=== PATIENT | female | born 1945 | race Caucasian/White ===

== ENCOUNTER 2020-06-17 09:32 | Emergency (ER) | payer MEDICARE, BC ==
[~2020-06-17] VITALS: Ht 157.5 cm; Wt 79.4 kg
--- NOTE | 2020-06-17 09:50 | NUR ---
Patient came in to the er c/o chest pressure x 1 week. On room air, breathing evenly and unlabored. Connected to the monitor and pulse ox. kept comfortable, will continue to monitor accordingly.
[2020-06-17 10:11] LABS: BASOPHILS % (AUTO) 0.7 % (0.0-2.0); EOSINOPHILS % (AUTO) 1.8 % (0.0-6.0); HEMATOCRIT 42 % (33-45); HEMOGLOBIN 13.9 g/dL (11.5-14.8); LYMPHOCYTES # (AUTO) 1.4 /CMM (0.8-4.8); LYMPHOCYTES % (AUTO) 23.8 % (20.0-44.0); MEAN CORPUSCULAR HGB CONC 33 g/dl (31.0-36.0); MEAN CORPUSCULAR VOLUME 87 fL (82-100); MONOCYTES # (AUTO) 0.7 /CMM (0.1-1.30); MONOCYTES % (AUTO) 11.6 % (2.0-12.0); NEUTROPHILS # (AUTO) 3.6 /CMM (1.8-8.9); NEUTROPHILS % (AUTO) 62.1 % (43.0-81.0); PLATELET COUNT (AUTO) 243 /CMM (150-450); RED BLOOD CELL COUNT(AUTO) 4.81 MIL/uL (4.0-5.2); WHITE BLOOD COUNT (AUTO) 5.7 K/uL (4.3-11.0)
[2020-06-17 10:22] LABS: CALCIUM, SERUM 9.4 mg/dL (8.5-10.1); CARBON DIOXIDE 26 mmol/L (21-32); CHLORIDE 107 mmol/L (98-107); CREATININE 1.2 mg/dL (0.6-1.3); GLUCOSE 89 mg/dL (74-106); POTASSIUM 4.3 mmol/L (3.5-5.1); SODIUM SERUM 141 mmol/L (136-145); UREA NITROGEN, BLOOD 19 mg/dL (7-18)
--- NOTE | 2020-06-17 10:25 | NUR ---
covid 19 swab collected and sent to lab.
[2020-06-17 11:44] VITALS: BP 142/88
--- NOTE | 2020-06-17 11:44 | NUR ---
Patient discharged to home in stable condition. Written and verbal after care instructions given. Patient verbalizes understanding of instruction.IV removed. Catheter intact and site benign. Pressure and 4x4 applied to site. No bleeding noted.
== END 2020-06-17 11:45 | disposition home or self-care (01) ==
LOC: ER 09:39
DX: R07.9 Chest pain, unspecified (principal); I10 Essential (primary) hypertension; Z86.73 Personal history of transient ischemic attack (TIA), and cerebral infarction without residual deficits; Z88.2 Allergy status to sulfonamides; Z20.828 Contact with and (suspected) exposure to other viral communicable diseases
CPT/HCPCS: 36415; 71045-TC; 80048-TC; 84484-TC; 85025-TC; C9803-CS; U0003-CS

== ENCOUNTER 2021-10-24 16:24 | Emergency (ER) | payer MEDICARE, BC ==
[~2021-10-24] VITALS: Ht 157.5 cm; Wt 74.8 kg
--- NOTE | 2021-10-24 16:24 | NUR ---
BIB daughter c/o tingling sensation on left orbital area since yesterday. Breathing is even and unalbored.
--- NOTE | 2021-10-24 16:48 | NUR ---
Contact INFO: Taylor (Daughter) - [phone]
--- NOTE | 2021-10-24 18:25 | NUR ---
Patient discharged to home in stable condition. Written and verbal after care instructions given. Patient verbalizes understanding of instruction.
[2021-10-24 18:26] VITALS: BP 128/81
== END 2021-10-24 18:27 | disposition home or self-care (01) ==
LOC: ER 16:27
DX: R20.2 Paresthesia of skin (principal); I12.9 Hypertensive chronic kidney disease with stage 1 through stage 4 chronic kidney disease, or unspecified chronic kidney disease; N18.9 Chronic kidney disease, unspecified; K21.9 Gastro-esophageal reflux disease without esophagitis; E78.00 Pure hypercholesterolemia, unspecified; Z90.89 Acquired absence of other organs; Z90.49 Acquired absence of other specified parts of digestive tract; Z86.73 Personal history of transient ischemic attack (TIA), and cerebral infarction without residual deficits; Z98.890 Other specified postprocedural states; Z88.2 Allergy status to sulfonamides
CPT/HCPCS: 70450-TC

== ENCOUNTER 2022-02-18 20:46 | Inpatient (IN) | payer MEDICARE, BC ==
[~2022-02-18] VITALS: Ht 157.5 cm; Wt 74.8 kg
--- NOTE | 2022-02-18 21:50 | NUR ---
BIBSELF WITH C/O FREQUENCY AND PAIN ON URINATION FOR THE PAST SEVERAL DAYS. PT IS AAO X 4, RESPIRATIONS UNLABORED, SATURATION AT 98% ON ROOM AIR, AMBULATORY WITH 4 POINT CANE. PT WAS SEEN AT MD'S OFFICE YESTERDAY AND WAS PRESCRIBED WITH ERTAPENEM, AND ZOSYN BUT HAS NOT YET STARTED. PT CONNECTED TO MONITOR AND PULSE OX. KEPT COMFORTABLE. WILL CONT TO MONITOR.
--- NOTE | 2022-02-18 22:01 | NUR ---
FAMILY CASEWORKER FOR DR. SIGALA PAGED.
[2022-02-18] MEDS ORDERED: PIPERACILLIN /TAZOBACTAM 3.375 G VIAL IV ONE (22:17)
--- NOTE | 2022-02-18 22:20 | NUR ---
IV LINE ESTABLISHED AT R HAND 22G, BLOOD DRAWN, AND URINE COLLECTED, SENT TO LAB.
--- NOTE | 2022-02-18 22:23 | NUR ---
TELEPHONE CALL TO PT'S DAUGHTER, DERRICK AT [phone], TO GIVE UPDATE ON PT PER PT REQUEST. NO ANSWER AFTER SEVERAL ATTEMPTS, LEFT VOICE MAIL AND PROVIDED CALL BACK NUMBER.
[2022-02-18] MEDS ORDERED: PIPERACILLIN /TAZOBACTAM 3.375 G in IV D5W 50 ML IV ONE (22:30)
[2022-02-18 22:40] LABS: BASOPHILS % (AUTO) 0.4 % (0.0-2.0); EOSINOPHILS % (AUTO) 1.3 % (0.0-6.0); HEMATOCRIT 37 % (33-45); HEMOGLOBIN 12.3 g/dL (11.5-14.8); LYMPHOCYTES # (AUTO) 0.6 K/uL (0.8-4.8); MEAN CORPUSCULAR HGB CONC 34 g/dl (31.0-36.0); MEAN CORPUSCULAR VOLUME 84 fL (82-100); MONOCYTES # (AUTO) 0.5 K/uL (0.1-1.30); MONOCYTES % (AUTO) 9.2 % (2.0-12.0); NEUTROPHILS # (AUTO) 4.7 K/uL (1.8-8.9); NEUTROPHILS % (AUTO) 79.1 % (43.0-81.0); PLATELET COUNT (AUTO) 237 K/uL (150-450); RED BLOOD CELL COUNT(AUTO) 4.37 MIL/uL (4.0-5.2); WHITE BLOOD COUNT (AUTO) 5.9 K/uL (4.3-11.0)
[2022-02-18 22:52] LABS: CALCIUM, SERUM 8.8 mg/dL (8.5-10.1); CARBON DIOXIDE 24 mmol/L (21-32); CHLORIDE 106 mmol/L (98-107); CREATININE 1.4 mg/dL (0.6-1.3); GLUCOSE 107 mg/dL (74-106); POTASSIUM 4.6 mmol/L (3.5-5.1); SODIUM SERUM 137 mmol/L (136-145); UREA NITROGEN, BLOOD 18 mg/dL (7-18)
--- NOTE | 2022-02-18 23:03 | NUR ---
COVID ANTIGEN AND MRSA SWAB COLLECTED, SENT TO LAB
[2022-02-18 23:14] LABS: BILIRUBIN,URINE SMALL (NEGATIVE); COLOR,URINE YELLOW (YELLOW); LEUKOCYTE ESTERASE ,URINE NEGATIVE (NEGATIVE); NITRITE, URINE NEGATIVE (NEGATIVE); PH,URINE 5.5 (5.0-8.0); PROTEIN,URINE NEGATIVE (NEGATIVE); UGLUCOSE NEGATIVE (NEGATIVE); UROBILINOGEN,URINE 0.2 EU/dL (0.2)
[2022-02-18] MEDS ORDERED: ONDANSETRON HCL/PF 4 MG/2 ML VIAL ONE (23:25)
[2022-02-18] MEDS ORDERED: ONDANSETRON HCL/PF 4 MG/2 ML VIAL IV ONE (23:30)
[2022-02-19] MEDS ORDERED: MORPHINE SULFATE INJ 2 MG/ML DISP.SYRIN IV PRN
[2022-02-19] MEDS ORDERED: HYDROCODONE/APAP 5/325MG TABLET PO PRN
[2022-02-19] MEDS ORDERED: LISI10TA29 PO (00:50)
[2022-02-19] MEDS ORDERED: CLOP75TA15 PO (00:50)
[2022-02-19] MEDS ORDERED: CYAN100096 PO (00:50)
[2022-02-19] MEDS ORDERED: CHOL400T11 PO (00:50)
[2022-02-19] MEDS ORDERED: FAMO20TA8 PO ×2 (00:50→08:26)
[2022-02-19] MEDS ORDERED: LEVO88TA5 PO (00:50)
[2022-02-19] MEDS ORDERED: LAMO100T17 PO (00:50)
[2022-02-19] MEDS ORDERED: LEVE500T20 PO (00:50)
[2022-02-19] MEDS ORDERED: ROSU10TA2 PO (00:50)
--- NOTE | 2022-02-19 01:37 | NUR ---
REPORT GIVEN TO CHARGE NURSE
--- NOTE | 2022-02-19 01:57 | NUR ---
Patient transferred to [facility] via BLS protocol.
[2022-02-19 02:00] VITALS: BP 103/57
[2022-02-19] MEDS: ENOXAPARIN SODIUM 30 MG/0.3 ML DISP.SYRIN SQ SCH ×2 (02:25→21:15)
[2022-02-19] MEDS: IV NS 0.9% 1,000 ML IV PRN (02:26)
--- NOTE | 2022-02-19 03:16 | NUR ---
ADMISSION NOTES PT ARRIVED VIA GURNEY @ 0200 ACCOMPANIED BY EMT. PT ABLE TO AMBULATE TO BED WITH CANE, STEADY GAIT. AOx4, ABLE TO MAKE NEEDS KNOWN. ON RA AND TOLERATING WELL. NO SOB NOTED. NO S/SX OF RESPIRATORY DISTRESS NOTED. IV ACCESS IN R HAND #22G RUNNING NS @ 75 ML/HR. SAFETY PRECAUTIONS IN PLACE: BED IN LOWEST, LOCKED POSITION, SIDERAILS UPx2, AND BRAKES ON. TABLE AND CALL LIGHT WITHIN REACH. WILL CONTINUE TO MONITOR.
[2022-02-19] MEDS ORDERED: PIPERACILLIN /TAZOBACTAM 3.375 G VIAL IV ONE (04:35)
[2022-02-19] MEDS ORDERED: ZOSYN IVPB 3.375 G in IV D5W 50ml IV SCH (05:00)
--- NOTE | 2022-02-19 05:21 | NUR ---
SPOKE TO DAUGHTER, DERRICK THOMAS, ABOUT PATIENT GETTING ADMITTED. NUMBER IS . ALSO REQUESTED IF DAUGHTER COULD BRING IN PATIENT'S ADVANCE DIRECTIVE
[2022-02-19 06:34] LABS: BASOPHILS % (AUTO) 0.8 % (0.0-2.0); EOSINOPHILS % (AUTO) 2.2 % (0.0-6.0); HEMATOCRIT 33 % (33-45); HEMOGLOBIN 10.9 g/dL (11.5-14.8); LYMPHOCYTES # (AUTO) 0.7 K/uL (0.8-4.8); LYMPHOCYTES % (AUTO) 18.1 % (20.0-44.0); MEAN CORPUSCULAR HGB CONC 33 g/dl (31.0-36.0); MEAN CORPUSCULAR VOLUME 85 fL (82-100); MONOCYTES # (AUTO) 0.4 K/uL (0.1-1.30); MONOCYTES % (AUTO) 10.6 % (2.0-12.0); NEUTROPHILS # (AUTO) 2.6 K/uL (1.8-8.9); NEUTROPHILS % (AUTO) 68.3 % (43.0-81.0); PLATELET COUNT (AUTO) 223 K/uL (150-450); RED BLOOD CELL COUNT(AUTO) 3.87 MIL/uL (4.0-5.2); WHITE BLOOD COUNT (AUTO) 3.8 K/uL (4.3-11.0)
[2022-02-19] MEDS: ACETAMINOPHEN 325 MG TABLET PO PRN ×2 (06:35→17:28)
[2022-02-19 06:44] LABS: CALCIUM, SERUM 8.6 mg/dL (8.5-10.1); CARBON DIOXIDE 26 mmol/L (21-32); CHLORIDE 106 mmol/L (98-107); CREATININE 1.4 mg/dL (0.6-1.3); GLUCOSE 93 mg/dL (74-106); MAGNESIUM 2.1 mg/dL (1.8-2.4); PHOSPHORUS 3.6 mg/dL (2.5-4.9); POTASSIUM 4.1 mmol/L (3.5-5.1); SODIUM SERUM 139 mmol/L (136-145); UREA NITROGEN, BLOOD 16 mg/dL (7-18)
--- NOTE | 2022-02-19 06:46 | NUR ---
RN CLOSING NOTES PT IN BED, AWAKE, WATCHING TV. AOx4, ABLE TO MAKE NEEDS KNOWN. ON RA AND TOLERATING WELL. NO SOB NOTED. NO S/SX OF RESPIRATORY DISTRESS NOTED. IV ACCESS IN R HAND #22G RUNNING NS @ 75 ML/HR. ALL ORDERS CARRIED OUT. ALL NEEDS MET. PT KEPT CLEAN AND DRY. SAFETY PRECAUTIONS IN PLACE: BED IN LOWEST, LOCKED POSITION, SIDERAILS UPx2, AND BRAKES ON. TABLE AND CALL LIGHT WITHIN REACH. WILL ENDORSE TO ONCOMING SHIFT FOR RANJANA.
[2022-02-19 06:48] LABS: CHOLESTEROL 106 mg/dL (<200); HDL CHOLESTEROL 42 mg/dL (40-60); LDL 40 mg/dL (0-99); TRIGLYCERIDES 122 mg/dL (30-150)
--- NOTE | 2022-02-19 07:30 | NUR ---
RN OPENING NOTES RECEIVED PATIENT IN BED, AWAKE A/O X4, VERBALLY RESPONSIVE, NO SIGNS OF ACUTE DISTRESS NOTED. STABLE ON ROOM AIR, NO SOB NOTED, BREATHING EVEN AND UNLABORED. NO C/O PAIN AT THIS TIME. NOTED WITH IV ACCESS ON RIGHT HAND #22G, INTACT AND PATENT WITH NS AT 75 ML/HR RUNNING. SAFETY MEASURE IN PLACE. BED IN LOWEST AND LOCKED POSITION, SIDE RAILS UP X2, CALL LIGHT PLACED WITHIN EASY REACH. WILL CONTINUE TO MONITOR PATIENT.
--- NOTE | 2022-02-19 09:35 | NUR ---
RN NOTES BEDSIDE ENDORSEMENT RECEIVED FROM EDI FARIA. PATIENT TRANSFERRED TO ROOM 117-1 [facility]IA [facility] [place]
--- NOTE | 2022-02-19 10:19 | NUR ---
RN NOTES DAUGHTER, DERRICK, AT BEDSIDE TO SEE PATIENT. PATIENT ABLE TO AMBULATE TO THE BATHROOM W/ STEADY GAIT.
--- NOTE | 2022-02-19 11:06 | NUR ---
RN NOTES PCR COVID TEST OBTAINED FROM LAB.
--- NOTE | 2022-02-19 11:43 | NUR ---
RN NOTES PATIENT SEEN BY DR. SHAVER AT BEDSIDE; MADE AWARE OF PLAN OF CARE. WILL DO MED RECON PER MD.
[2022-02-19] MEDS: LEVETIRACETAM (250 MG) 250 MG TABLET PO SCH ×2 (11:59→21:14)
[2022-02-19] MEDS: PIPERACILLIN /TAZOBACTAM 3.375 G in IV D5W 100 ML IV SCH ×2 (12:35→21:13)
[2022-02-19] MEDS: ONDANSETRON HCL/PF 4 MG/2 ML VIAL IVP PRN (17:28)
--- NOTE | 2022-02-19 18:18 | NUR ---
RN NOTES AMBULATES W/ STEADY GAIT; CONTINUES ON IVF AND IV ATB, NO ADVERSE REACTION. ABLE TO EAT MEALS DURING THE DAY. PROVIDED W/ PRN MEDS PER PATIENT REQUEST. SAFETY MEASURES MAINTAINED.
--- NOTE | 2022-02-19 19:20 | NUR ---
RN NOTE PT RECEIVED IN BED. PT IS ON ROOM AIR SHOWING NO S/SX OF RESP DISTRESS/SOB. BREATHING EVEN AND UNLABORED. PT IS A/OX4. AMBULATORY. ON CARDIAC DIET. IV ACCESS NOTED ON RIGHT HAND #22, LINE FLUSHED, PATENT, AND INTACT RUNNING NS AT 75 CC/HR. ALL SAFETY MEASURES IMPLEMENTED. CALL LIGHT WITHIN REACH. HOB ELEVATED. BED LOCKED AND IN LOWEST POSITION. WILL CONTINUE TO MONITOR AND ASSESS FOR ANY CHANGES DURING SHIFT.
[2022-02-19 20:00] VITALS: BP 104/53
[2022-02-19] MEDS: LamoTRIgine 100 MG TABLET PO SCH (21:14)
[2022-02-19] MEDS: FAMOTIDINE (20 MG) 20 MG TABLET PO SCH (21:14)
[2022-02-19] MEDS: ATORVASTATIN 10 MG TABLET PO SCH (21:14)
[2022-02-20 04:00] VITALS: BP 130/59
[2022-02-20] MEDS: IV NS 0.9% 1,000 ML IV PRN (05:27)
[2022-02-20] MEDS: PIPERACILLIN /TAZOBACTAM 3.375 G in IV D5W 100 ML IV SCH ×3 (05:28→21:04)
--- NOTE | 2022-02-20 06:24 | NUR ---
RN NOTE NO CHANGES IN PT CONDITION DURING SHIFT. PT IS ON ROOM AIR SHOWING NO S/SX OF RESP DISTRESS/SOB. BREATHING EVEN AND UNLABORED. NS RUNNING AT 75 CC/HR AND ZOSYN RUNNING AT 25 CC/HR. ALL SAFETY MEASURES IMPLEMENTED. CALL LIGHT WITHIN REACH. HOB ELEVATED. BED LOCKED AND IN LOWEST POSITION. WILL ENDORSE TO MORNING SHIFT RN FOR RANJANA.
--- NOTE | 2022-02-20 07:32 | NUR ---
MS RN NOTE RECEIVED PATIENT IN BED ASLEEP. AWAKE UPON CALLING HER NAME. PATIENT IS ON ROOM AIR NO RESP DISTRESS/SOB NOTED. BREATHING EVEN AND UNLABORED. PT IS A/OX4. AMBULATORY. IV ACCESS ON RIGHT HAND #22, INTACT AND PATENT RUNNING NS AT 75 CC/HR. PER PREVIOUS SHIFT NURSE PATIENT CODE STATUS NEEDS TO BE VERIFIED. PATIENT STATED DNI PER PREVIOUS SHIFT NURSE ENDORSEMENT. ALL SAFETY MEASURES IN PLACE. CALL LIGHT WITHIN REACH. HOB ELEVATED. BED LOCKED AND IN LOWEST POSITION. WILL CONTINUE TO MONITOR DURING SHIFT.
[2022-02-20] MEDS: LEVOTHYROXINE SODIUM 88 MCG TABLET PO SCH (07:42)
[2022-02-20] MEDS: LEVETIRACETAM (250 MG) 250 MG TABLET PO SCH ×2 (08:19→20:28)
[2022-02-20] MEDS: CHOLECALCIFEROL (VITAMIN D 3) 400 UNIT TABLET PO SCH (08:19)
[2022-02-20] MEDS: CYANOCOBALAMIN 500 MCG TABLET PO SCH (08:19)
[2022-02-20] MEDS: CLOPIDOGREL BISULFATE 75 MG TABLET PO SCH (08:20)
[2022-02-20] MEDS: LISINOPRIL (10MG) 10 MG TABLET PO SCH (08:20)
[2022-02-20 10:10] LABS: CALCIUM, SERUM 8.5 mg/dL (8.5-10.1); CARBON DIOXIDE 24 mmol/L (21-32); CHLORIDE 108 mmol/L (98-107); CREATININE 1.3 mg/dL (0.6-1.3); GLUCOSE 111 mg/dL (74-106); POTASSIUM 4.2 mmol/L (3.5-5.1); SODIUM SERUM 139 mmol/L (136-145); UREA NITROGEN, BLOOD 12 mg/dL (7-18)
[2022-02-20 10:15] LABS: ALANINE AMINOTRANSFERASE 25 U/L (12-78); ALKALINE PHOSPHATASE 85 U/L (46-116); ASPARTATE AMINOTRANSFERASE 29 U/L (15-37); BILIRUBIN,TOTAL 0.2 mg/dL (0.2-1.0); TOTAL PROTEIN, SERUM 6.2 g/dL (6.4-8.2)
[2022-02-20] MEDS: ACETAMINOPHEN 325 MG TABLET PO PRN ×2 (10:44→20:28)
[2022-02-20] MEDS: ONDANSETRON HCL/PF 4 MG/2 ML VIAL IVP PRN (10:44)
[2022-02-20 12:21] VITALS: BP 110/51
--- NOTE | 2022-02-20 18:28 | NUR ---
MS RN CLOSING NOTE PATIENT IN BED AWAKE. PATIENT IS ON ROOM AIR NO RESP DISTRESS/SOB NOTED. BREATHING EVEN AND UNLABORED. PT IS A/OX4. AMBULATORY. IV ACCESS ON RIGHT HAND #22, INTACT AND PATENT RUNNING NS AT 75 CC/HR. ALL DUE MEDS GIVEN ORDERED. DAUGHTER VISITED THE PATIENT.ALL SAFETY MEASURES IN PLACE. CALL LIGHT WITHIN REACH. HOB ELEVATED. BED LOCKED AND IN LOWEST POSITION. WILL ENDORSE FOR RANJANA.
--- NOTE | 2022-02-20 19:49 | NUR ---
MS RN OPENING NOTE RECEIVED PT AWAKE IN BED. A/O X4 AND ABLE TO MAKE NEEDS KNOWN. PT STABLE ON ROOM AIR. NO SOB OR S/S OF RESPIRATORY DISTRESS. BREATHING EVEN AND UNLABORED. IV ACCESS ON RIGHT HAND 22 GAUGE AND LEFT HAND 22 GAUGE, INTACT AND PATENT RUNNING NS AT 75 CC/HR. SAFETY PRECAUTIONS IN PLACE. BED IN LOWEST LOCKED POSITION, HOB ELEVATED, SIDE RAILS UP X2, AND CALL LIGHT AND TABLE WITHIN REACH. ALL NEEDS MET AT THIS TIME.
[2022-02-20 20:00] VITALS: BP 134/54
[2022-02-20] MEDS: LamoTRIgine 100 MG TABLET PO SCH (21:04)
[2022-02-20] MEDS: ATORVASTATIN 10 MG TABLET PO SCH (21:07)
[2022-02-20] MEDS: ENOXAPARIN SODIUM 30 MG/0.3 ML DISP.SYRIN SQ SCH (21:07)
[2022-02-20] MEDS: FAMOTIDINE (20 MG) 20 MG TABLET PO SCH (21:08)
[2022-02-21] MEDS: ACETAMINOPHEN 325 MG TABLET PO PRN ×2 (03:05→22:15)
[2022-02-21 04:00] VITALS: BP 118/40
[2022-02-21] MEDS: PIPERACILLIN /TAZOBACTAM 3.375 G in IV D5W 100 ML IV SCH ×3 (04:25→21:33)
[2022-02-21] MEDS: IV NS 0.9% 1,000 ML IV PRN ×2 (04:29→22:11)
--- NOTE | 2022-02-21 06:36 | NUR ---
MS RN CLOSING NOTE PT AWAKE IN BED. A/O X4 AND ABLE TO MAKE NEEDS KNOWN. PT STABLE ON ROOM AIR. NO SOB OR S/S OF RESPIRATORY DISTRESS. BREATHING EVEN AND UNLABORED. IV ACCESS ON RIGHT HAND 22 GAUGE AND LEFT HAND 22 GAUGE, INTACT AND PATENT RUNNING NS AT 75 CC/HR. ALL DUE MEDS GIVEN ORDERED. SAFETY PRECAUTIONS IN PLACE. BED IN LOWEST LOCKED POSITION, HOB ELEVATED, SIDE RAILS UP X2, AND CALL LIGHT AND TABLE WITHIN REACH. ALL NEEDS MET AT THIS TIME AND WILL ENDORSE TO ONCOMING NURSE FOR RANJANA.
[2022-02-21 07:08] LABS: ALANINE AMINOTRANSFERASE 191 U/L (12-78); ALBUMIN 2.6 g/dL (3.4-5.0); ALKALINE PHOSPHATASE 202 U/L (46-116); ASPARTATE AMINOTRANSFERASE 232 U/L (15-37); BILIRUBIN,TOTAL 0.7 mg/dL (0.2-1.0); CALCIUM, SERUM 7.9 mg/dL (8.5-10.1); CARBON DIOXIDE 24 mmol/L (21-32); CHLORIDE 109 mmol/L (98-107); CREATININE 1.3 mg/dL (0.6-1.3); GLUCOSE 126 mg/dL (74-106); PHOSPHORUS 3.1 mg/dL (2.5-4.9); SODIUM SERUM 142 mmol/L (136-145); TOTAL PROTEIN, SERUM 5.5 g/dL (6.4-8.2); UREA NITROGEN, BLOOD 10 mg/dL (7-18)
--- NOTE | 2022-02-21 07:10 | NUR ---
RN NOTE RECEIVED PATIENT SITTING ON BED ALERT ORIENTED X4 ON ROOM AIR O2:96% IV SITE IS ON LEFT HAND INTACT PATENT ON IV HYDRATION NS 75CC/HR,CONTINET TO BOWEL/BLADDER AMBULATORY,SAFETY MEASURE IMPLEMENT,BED IN LOW POSITION AND LOCKED,CALL LIGHT WITHIN REACH CONTINUE TO MONITOR.
[2022-02-21 07:46] LABS: BASOPHILS % (AUTO) 0.2 % (0.0-2.0); EOSINOPHILS % (AUTO) 5.7 % (0.0-6.0); HEMATOCRIT 32 % (33-45); HEMOGLOBIN 10.7 g/dL (11.5-14.8); LYMPHOCYTES # (AUTO) 0.4 K/uL (0.8-4.8); LYMPHOCYTES % (AUTO) 16.5 % (20.0-44.0); MEAN CORPUSCULAR HGB CONC 34 g/dl (31.0-36.0); MEAN CORPUSCULAR VOLUME 85 fL (82-100); MONOCYTES # (AUTO) 0.3 K/uL (0.1-1.30); MONOCYTES % (AUTO) 12.5 % (2.0-12.0); NEUTROPHILS # (AUTO) 1.6 K/uL (1.8-8.9); NEUTROPHILS % (AUTO) 65.1 % (43.0-81.0); PLATELET COUNT (AUTO) 164 K/uL (150-450); RED BLOOD CELL COUNT(AUTO) 3.77 MIL/uL (4.0-5.2); WHITE BLOOD COUNT (AUTO) 2.4 K/uL (4.3-11.0)
[2022-02-21] MEDS: LEVOTHYROXINE SODIUM 88 MCG TABLET PO SCH (07:50)
[2022-02-21] MEDS: CHOLECALCIFEROL (VITAMIN D 3) 400 UNIT TABLET PO SCH (08:53)
[2022-02-21] MEDS: LEVETIRACETAM (250 MG) 250 MG TABLET PO SCH ×2 (08:54→21:34)
[2022-02-21] MEDS: CLOPIDOGREL BISULFATE 75 MG TABLET PO SCH (08:54)
[2022-02-21] MEDS: CYANOCOBALAMIN 500 MCG TABLET PO SCH (08:54)
[2022-02-21] MEDS: LISINOPRIL (10MG) 10 MG TABLET PO SCH (09:00)
[2022-02-21] MEDS ORDERED: Z GUARD REMEDY 4 OZ OINT TP PRN (10:30)
[2022-02-21 12:00] VITALS: BP 140/68
[2022-02-21] MEDS: NYSTATIN CREAM 15 GM TUBE TP SCH (17:02)
--- NOTE | 2022-02-21 18:36 | NUR ---
RN NOTE PATIENT REMAINS ALERT ORIENTED X4 VERBALLY RESPONSIVE NO SOB NOT ACUTE DISTRESS NOTED IV LINE IS ON LEFT HAND INTACT PATENT ON NS IV HYDRATION 75CC/HR,ENDORSE NEXT COMING SHIFT FOR CONTINUATION OF CARE.
--- NOTE | 2022-02-21 19:35 | NUR ---
RN OPENING NOTES: RECEIVED PT IN BED, AWAKE, A/O X4 AND VERBALLY RESPONSIVE. ABLE TO MAKE NEEDS KNOWN. ON ROOM AIR AND PT TOLERATED WELL. BREATHING EVEN AND UNLABORED. IV ACCESS ON LEFT HAND #22G INTACT AND PATENT RUNNING NS AT 75 CC/HR. NO C/O PAIN OR DISCOMFORT. NO ACUTE DISTRESS. ALL SAFETY MEASURES IN PLACE. BED IN LOWEST POSITION AND LOCKED. SIDE RAILS UP X2, PLACE CALL LIGHT WITH IN REACH. WILL CONTINUE TO MONITOR.
[2022-02-21 20:00] VITALS: BP 117/54
[2022-02-21] MEDS: ATORVASTATIN 10 MG TABLET PO SCH (21:34)
[2022-02-21] MEDS: LamoTRIgine 100 MG TABLET PO SCH (21:34)
[2022-02-21] MEDS: FAMOTIDINE (20 MG) 20 MG TABLET PO SCH (21:34)
[2022-02-21] MEDS: ENOXAPARIN SODIUM 30 MG/0.3 ML DISP.SYRIN SQ SCH (21:35)
--- NOTE | 2022-02-21 22:20 | NUR ---
RN NOTES: PT C/O GENERALIZED BODY ACHE, 3/10 PAIN SCALE. TYLENOL 325 MG 2 TABS GIVEN PER PRN ORDERED. PT TOLERATED WELL. WILL CONTINUE TO MONITOR
[2022-02-22 04:00] VITALS: BP 110/59
[2022-02-22] MEDS ORDERED: diphenhydrAMINE HCL 50 MG/ML VIAL IV ONE (04:30)
--- NOTE | 2022-02-22 04:46 | NUR ---
RN NOTES: PT C/O GENERALIZED ITCHINESS ALL OVER HER BODY WITH REDNESS. SHE WANTS SOMETHING TO STOP HER ITCHINESS. NOTIFIED SARAH ANDRE. ORDER BENADRYL 25 MG IV PUSH ONCE. ORDER NOTED AND CARRIED OUT.
[2022-02-22] MEDS: PIPERACILLIN /TAZOBACTAM 3.375 G in IV D5W 100 ML IV SCH (04:57)
--- NOTE | 2022-02-22 06:40 | NUR ---
RN CLOSING NOTES: PT IN BED, AWAKE, A/O X4 AND VERBALLY RESPONSIVE. ABLE TO MAKE NEEDS KNOWN. ON ROOM AIR AND PT TOLERATED WELL. O2 SAT 100%. BREATHING EVEN AND UNLABORED. IV ACCESS ON LEFT HAND #22G INTACT AND PATENT. NO S/S OF INFILTRATIONS. RUNNING NS AT 75 CC/HR. NO C/O PAIN OR DISCOMFORT. NO ACUTE DISTRESS. ALL DUE MEDS GIVEN ORDERED. ALL SAFETY MEASURES IN PLACE. BED IN LOWEST POSITION AND LOCKED. SIDE RAILS UP X2, PLACE CALL LIGHT WITH IN REACH. WILL ENDORSE TO MORNING SHIFT NURSE.
[2022-02-22 06:44] LABS: BASOPHILS % (AUTO) 0.2 % (0.0-2.0); EOSINOPHILS % (AUTO) 6.8 % (0.0-6.0); HEMATOCRIT 33 % (33-45); HEMOGLOBIN 11.1 g/dL (11.5-14.8); LYMPHOCYTES # (AUTO) 0.4 K/uL (0.8-4.8); LYMPHOCYTES % (AUTO) 18.5 % (20.0-44.0); MEAN CORPUSCULAR HGB CONC 33 g/dl (31.0-36.0); MEAN CORPUSCULAR VOLUME 85 fL (82-100); MONOCYTES # (AUTO) 0.2 K/uL (0.1-1.30); MONOCYTES % (AUTO) 10.2 % (2.0-12.0); NEUTROPHILS # (AUTO) 1.5 K/uL (1.8-8.9); NEUTROPHILS % (AUTO) 64.3 % (43.0-81.0); PLATELET COUNT (AUTO) 142 K/uL (150-450); RED BLOOD CELL COUNT(AUTO) 3.88 MIL/uL (4.0-5.2); WHITE BLOOD COUNT (AUTO) 2.4 K/uL (4.3-11.0)
[2022-02-22 07:08] LABS: ALANINE AMINOTRANSFERASE 240 U/L (12-78); ALBUMIN 2.5 g/dL (3.4-5.0); ALKALINE PHOSPHATASE 278 U/L (46-116); ASPARTATE AMINOTRANSFERASE 202 U/L (15-37); BILIRUBIN,DIRECT 0.9 mg/dL (0.0-0.2); BILIRUBIN,TOTAL 1.3 mg/dL (0.2-1.0); CARBON DIOXIDE 12 mmol/L (21-32); CHLORIDE 109 mmol/L (98-107); CREATININE 1.2 mg/dL (0.6-1.3); GLUCOSE 87 mg/dL (74-106); PHOSPHORUS 3.1 mg/dL (2.5-4.9); POTASSIUM 3.8 mmol/L (3.5-5.1); SODIUM SERUM 142 mmol/L (136-145); TOTAL PROTEIN, SERUM 5.4 g/dL (6.4-8.2); UREA NITROGEN, BLOOD 8 mg/dL (7-18)
--- NOTE | 2022-02-22 07:30 | NUR ---
RN OPENING NOTE PATIENT IS IN BED ON SEMI-SMITH'S POSITION AWAKE, ALERT, ORIENTED X 4. ON ROOM AIR WITH OXYGEN SATURATION AT 100%. WITH LEFT HAND IV LINE INFUSING WITH NS AT 75 CC/HR. NOT IN ANY FORM OF DISTRESS. WITH REDNESS ON ARMS, ABDOMEN, BUTTOCKS, AND GROIN. BED IS LOCKED IN THE LOWEST POSITION, 3 GUARD RAILS RAISED, CALL AJ WITHIN REACH AND ALL HOSPITAL SAFETY PRECAUTIONS ARE IN PLACE. WILL CONTINUE TO MONITOR THROUGHOUT SHIFT.
[2022-02-22 07:55] LABS: CALCIUM, SERUM 8.4 mg/dL (8.5-10.1)
[2022-02-22] MEDS: CHOLECALCIFEROL (VITAMIN D 3) 400 UNIT TABLET PO SCH (08:23)
[2022-02-22] MEDS: CLOPIDOGREL BISULFATE 75 MG TABLET PO SCH (08:24)
[2022-02-22] MEDS: LISINOPRIL (10MG) 10 MG TABLET PO SCH (08:24)
[2022-02-22] MEDS: LEVOTHYROXINE SODIUM 88 MCG TABLET PO SCH (08:24)
[2022-02-22] MEDS: LEVETIRACETAM (250 MG) 250 MG TABLET PO SCH ×2 (08:25→20:45)
[2022-02-22] MEDS: CYANOCOBALAMIN 500 MCG TABLET PO SCH (08:25)
[2022-02-22] MEDS: NYSTATIN CREAM 15 GM TUBE TP SCH ×2 (09:34→17:44)
[2022-02-22] MEDS: LEVOFLOXACIN 500 MG /D5W 100ML 500 MG in PREMIX 1 EA IV SCH (10:35)
--- NOTE | 2022-02-22 11:49 | NUR ---
RN NOTE IV OUT. IV REINSERTED BY EDI CEE ON RIGHT HAND USING GAUGE 24.
[2022-02-22 12:00] VITALS: BP 104/42
[2022-02-22] MEDS: ACETAMINOPHEN 325 MG TABLET PO PRN ×2 (12:14→21:46)
[2022-02-22] MEDS: ONDANSETRON HCL/PF 4 MG/2 ML VIAL IVP PRN (12:14)
[2022-02-22] MEDS: METRONIDAZOLE 500MG/ NS 100ML 500 MG in PREMIX 1 EA IV SCH ×2 (13:44→20:24)
--- NOTE | 2022-02-22 15:33 | NUR ---
urine specimen obtained send to lab awaits results.
[2022-02-22 15:39] LABS: BILIRUBIN,URINE NEGATIVE (NEGATIVE); COLOR,URINE YELLOW (YELLOW); LEUKOCYTE ESTERASE ,URINE NEGATIVE (NEGATIVE); NITRITE, URINE NEGATIVE (NEGATIVE); PROTEIN,URINE NEGATIVE (NEGATIVE); UGLUCOSE NEGATIVE (NEGATIVE); UROBILINOGEN,URINE 0.2 EU/dL (0.2)
--- NOTE | 2022-02-22 15:51 | NUR ---
RN NOTE MIDLINE ON RIGHT FOREARM INSERTED BY EDI TNIOCO. IV SALINE LOCK GAUGE 24 ON RIGHT HAND REMOVED.
[2022-02-22] MEDS: IV NS 0.9% 1,000 ML IV PRN (17:48)
[2022-02-22] MEDS: diphenhydrAMINE HCL 50 MG/ML VIAL IV PRN ×2 (17:57→23:56)
--- NOTE | 2022-02-22 18:57 | NUR ---
RN CLOSING NOTE PATIENT IS IN BED ON SEMI-SMITH'S POSITION ALERT, ORIENTED X 4. ON ROOM AIR WITH OXYGEN SATURATION AT 100%. WITH RIGHT FOREARM IV LINE INFUSING WITH NS AT 75 CC/HR. NOT IN ANY FORM OF DISTRESS. ARIANA PAIN. WITH REDNESS ON ARMS, ABDOMEN, BUTTOCKS, AND GROIN. BED IS LOCKED IN THE LOWEST POSITION, 3 GUARD RAILS RAISED, CALL AJ WITHIN REACH AND ALL HOSPITAL SAFETY PRECAUTIONS ARE IN PLACE. ALL DUE MEDICATIONS GIVEN. WILL ENDORSE TO SKILLED NURSING FACILITIES PROFESSIONAL NURSE.
[2022-02-22 20:00] VITALS: BP 130/62
[2022-02-22] MEDS: ENOXAPARIN SODIUM 30 MG/0.3 ML DISP.SYRIN SQ SCH (20:25)
--- NOTE | 2022-02-22 20:30 | NUR ---
RN NOTE DUE FLAGYL IV GIVEN ORDERED. PT ASKING FOR BENADRYL FOR PROPHYLAXIS TO IV ATB. HOWEVER, IT IS NOT YET DUE AT THIS TIME. PT VERBALIZED UNDERSTANDING. WILL CONT TO MONITOR FOR ANY ALLERGIC REACTION TO IV FLAGYL.
--- NOTE | 2022-02-22 21:00 | NUR ---
RN NOTE NO NOTED ALLERGIC REACTION TO FLAGYL, NO NEW RASHES/REDNESS. WILL CONT TO MONITOR.
[2022-02-22] MEDS: ATORVASTATIN 10 MG TABLET PO SCH (21:28)
[2022-02-22] MEDS: FAMOTIDINE (20 MG) 20 MG TABLET PO SCH (21:28)
[2022-02-22] MEDS: LamoTRIgine 100 MG TABLET PO SCH (21:28)
[2022-02-23] VITALS: BP 140/60
--- NOTE | 2022-02-23 | NUR ---
RN NOTE GIVEN IV BENADRYL PER PT'S REQUEST FOR ITCHING/REDNESS
[2022-02-23 04:00] VITALS: BP 132/57
[2022-02-23] MEDS: METRONIDAZOLE 500MG/ NS 100ML 500 MG in PREMIX 1 EA IV SCH ×3 (05:30→20:41)
--- NOTE | 2022-02-23 05:52 | NUR ---
RN NOTE PT SHOWED HER R-ARM WHICH SHOWED LESS REDNESS, AND NO NEW RASHES/REDNESS APPEARED. NO S/S OF ALLERGY TO FLAGYL NOTED. NEXT DOSE OF FLAGYL GIVEN.
[2022-02-23 06:39] LABS: BASOPHILS % (AUTO) 0.3 % (0.0-2.0); EOSINOPHILS % (AUTO) 7.1 % (0.0-6.0); HEMATOCRIT 31 % (33-45); HEMOGLOBIN 10.4 g/dL (11.5-14.8); LYMPHOCYTES # (AUTO) 0.4 K/uL (0.8-4.8); LYMPHOCYTES % (AUTO) 14.3 % (20.0-44.0); MEAN CORPUSCULAR HGB CONC 33 g/dl (31.0-36.0); MEAN CORPUSCULAR VOLUME 86 fL (82-100); MONOCYTES # (AUTO) 0.4 K/uL (0.1-1.30); MONOCYTES % (AUTO) 14.3 % (2.0-12.0); NEUTROPHILS # (AUTO) 1.7 K/uL (1.8-8.9); PLATELET COUNT (AUTO) 148 K/uL (150-450); RED BLOOD CELL COUNT(AUTO) 3.66 MIL/uL (4.0-5.2); WHITE BLOOD COUNT (AUTO) 2.6 K/uL (4.3-11.0)
[2022-02-23 06:55] LABS: ALBUMIN 2.3 g/dL (3.4-5.0); BILIRUBIN,TOTAL 2.7 mg/dL (0.2-1.0); CREATININE 1.2 mg/dL (0.6-1.3); POTASSIUM 3.8 mmol/L (3.5-5.1); TOTAL PROTEIN, SERUM 5.2 g/dL (6.4-8.2)
[2022-02-23 07:09] LABS: CALCIUM, SERUM 8.1 mg/dL (8.5-10.1)
[2022-02-23 07:10] LABS: ALBUMIN 2.3 g/dL (3.4-5.0); BILIRUBIN,DIRECT 2.1 mg/dL (0.0-0.2); BILIRUBIN,TOTAL 2.6 mg/dL (0.2-1.0); PHOSPHORUS 3.1 mg/dL (2.5-4.9); TOTAL PROTEIN, SERUM 5.1 g/dL (6.4-8.2)
[2022-02-23 07:31] LABS: MAGNESIUM 1.8 mg/dL (1.8-2.4)
[2022-02-23] MEDS: CLOPIDOGREL BISULFATE 75 MG TABLET PO SCH (08:35)
[2022-02-23] MEDS: CHOLECALCIFEROL (VITAMIN D 3) 400 UNIT TABLET PO SCH (08:36)
[2022-02-23] MEDS: CYANOCOBALAMIN 500 MCG TABLET PO SCH (08:36)
[2022-02-23] MEDS: LEVETIRACETAM (250 MG) 250 MG TABLET PO SCH ×2 (08:36→20:42)
[2022-02-23] MEDS: LISINOPRIL (10MG) 10 MG TABLET PO SCH (08:37)
[2022-02-23] MEDS: LEVOTHYROXINE SODIUM 88 MCG TABLET PO SCH (08:40)
[2022-02-23] MEDS: NYSTATIN CREAM 15 GM TUBE TP SCH ×2 (09:00→17:00)
[2022-02-23] MEDS: LEVOFLOXACIN 500 MG /D5W 100ML 500 MG in PREMIX 1 EA IV SCH (10:52)
[2022-02-23 12:00] VITALS: BP 122/60
--- NOTE | 2022-02-23 18:43 | NUR ---
RN CLOSING NOTE PATIENT IS SITTING IN BED WITH LEGS DANGLING EATING DINNER. A/0 TIMES 4. NO APPARENT SIGNS OF DISTRESS. RASH WAS NOTED ON HER ARMS. CLIENT HAS PRN BENADRYL BUT DECIDED TO TAKE THE MEDICATION "BEFORE SLEEP". WILL ENDORSE TO ONCOMING NURSE FOR RANJANA.
[2022-02-23] MEDS: IV NS 0.9% 1,000 ML IV PRN (19:49)
[2022-02-23 20:00] VITALS: BP 154/70
--- NOTE | 2022-02-23 20:00 | NUR ---
RN MS NOTE PATIENT IS IN BED ON SEMI-SMITH'S POSITION ALERT, ORIENTED X 4. V/S STABLE AFEBRILE , ON ROOM AIR WITH OXYGEN SATURATION AT 100%. WITH RIGHT UPPER ARM MID LINE IV LINE INFUSING WITH NS AT 75 CC/HR. NOT IN ANY FORM OF DISTRESS. ARIANA PAIN. WITH REDNESS ON ARMS, ABDOMEN, BUTTOCKS, AND GROIN. BED IS LOCKED IN THE LOWEST POSITION, ALL DUE MEDS GIVEN ORDERED CALL LIGHT WITHIN REACH AND ALL HOSPITAL SAFETY PRECAUTIONS ARE IN PLACE. ALL DUE MEDICATIONS GIVEN. WILL CONTINUE TO MONITOR
[2022-02-23] MEDS: ONDANSETRON HCL/PF 4 MG/2 ML VIAL IVP PRN (20:40)
[2022-02-23] MEDS: ENOXAPARIN SODIUM 30 MG/0.3 ML DISP.SYRIN SQ SCH (20:44)
[2022-02-23] MEDS: LamoTRIgine 100 MG TABLET PO SCH (21:01)
[2022-02-23] MEDS: ATORVASTATIN 10 MG TABLET PO SCH (21:01)
[2022-02-23] MEDS: FAMOTIDINE (20 MG) 20 MG TABLET PO SCH (21:01)
[2022-02-23] MEDS: diphenhydrAMINE HCL 50 MG/ML VIAL IV PRN (21:26)
[2022-02-24 04:00] VITALS: BP 125/57
[2022-02-24] MEDS: METRONIDAZOLE 500MG/ NS 100ML 500 MG in PREMIX 1 EA IV SCH ×3 (05:05→20:40)
[2022-02-24] MEDS: diphenhydrAMINE HCL 50 MG/ML VIAL IV PRN ×2 (05:06→21:51)
--- NOTE | 2022-02-24 06:55 | NUR ---
ms rn notes Pts remains in bed awake alert and responsive no sob no distress noted on r/a .all needs meet , due meds given as ordered .continue on ns at 75cc/hr tolerating well. will endorse to rn day shift for continuity of care.
[2022-02-24 07:50] LABS: BASOPHILS % (AUTO) 0.4 % (0.0-2.0); EOSINOPHILS % (AUTO) 7.9 % (0.0-6.0); HEMATOCRIT 32 % (33-45); HEMOGLOBIN 10.6 g/dL (11.5-14.8); LYMPHOCYTES # (AUTO) 0.4 K/uL (0.8-4.8); LYMPHOCYTES % (AUTO) 15.6 % (20.0-44.0); MEAN CORPUSCULAR HGB CONC 33 g/dl (31.0-36.0); MEAN CORPUSCULAR VOLUME 86 fL (82-100); MONOCYTES # (AUTO) 0.4 K/uL (0.1-1.30); MONOCYTES % (AUTO) 14.1 % (2.0-12.0); NEUTROPHILS # (AUTO) 1.7 K/uL (1.8-8.9); PLATELET COUNT (AUTO) 144 K/uL (150-450); RED BLOOD CELL COUNT(AUTO) 3.77 MIL/uL (4.0-5.2); WHITE BLOOD COUNT (AUTO) 2.8 K/uL (4.3-11.0)
--- NOTE | 2022-02-24 08:00 | NUR ---
RN OPENING NOTES RECEIVED PATIENT IN BED, AWAKE, A/O X4, VERBALLY RESPONSIVE. NO SIGNS OF ACUTE DISTRESS NOTED. ON ROOM AIR, NO SOB NOTED, BREATHING EVEN AND UNLABORED. NO C/O PAIN AT THIS TIME. NOTED WITH IV ACCESS ON RIGHT UPPER ARM MIDLINE #18G, INTACT AND PATENT, WITH NS @75 ML/HR INFUSING WELL. SAFETY MEASURE IN PLACE. BED IN LOWEST AND LOCKED POSITION, SIDE RAILS UP X2, CALL LIGHT PLACED WITHIN EASY REACH. WILL CONTINUE TO MONITOR PATIENT.
[2022-02-24] MEDS: LEVETIRACETAM (250 MG) 250 MG TABLET PO SCH ×2 (08:16→21:50)
[2022-02-24] MEDS: LEVOTHYROXINE SODIUM 88 MCG TABLET PO SCH (08:16)
[2022-02-24] MEDS: CYANOCOBALAMIN 500 MCG TABLET PO SCH (08:16)
[2022-02-24] MEDS: CHOLECALCIFEROL (VITAMIN D 3) 400 UNIT TABLET PO SCH (08:17)
[2022-02-24] MEDS: LISINOPRIL (10MG) 10 MG TABLET PO SCH (08:17)
[2022-02-24] MEDS: NYSTATIN CREAM 15 GM TUBE TP SCH ×2 (08:17→16:32)
[2022-02-24] MEDS: CLOPIDOGREL BISULFATE 75 MG TABLET PO SCH (08:17)
[2022-02-24] MEDS: LEVOFLOXACIN 500 MG /D5W 100ML 500 MG in PREMIX 1 EA IV SCH (09:16)
[2022-02-24 09:19] LABS: ALANINE AMINOTRANSFERASE 171 U/L (12-78); ALBUMIN 2.5 g/dL (3.4-5.0); ALKALINE PHOSPHATASE 394 U/L (46-116); ASPARTATE AMINOTRANSFERASE 91 U/L (15-37); BILIRUBIN,TOTAL 3.3 mg/dL (0.2-1.0); CALCIUM, SERUM 7.8 mg/dL (8.5-10.1); CARBON DIOXIDE 26 mmol/L (21-32); CHLORIDE 107 mmol/L (98-107); GLUCOSE 92 mg/dL (74-106); POTASSIUM 3.6 mmol/L (3.5-5.1); SODIUM SERUM 143 mmol/L (136-145); TOTAL PROTEIN, SERUM 5.3 g/dL (6.4-8.2)
[2022-02-24 09:22] LABS: ALBUMIN 2.4 g/dL (3.4-5.0); BILIRUBIN,DIRECT 2.8 mg/dL (0.0-0.2); BILIRUBIN,TOTAL 3.3 mg/dL (0.2-1.0); TOTAL PROTEIN, SERUM 5.3 g/dL (6.4-8.2)
[2022-02-24 09:45] LABS: UREA NITROGEN, BLOOD 8 mg/dL (7-18)
[2022-02-24 12:00] VITALS: BP 153/73
[2022-02-24] MEDS ORDERED: LORAZEPAM INJ 2 MG/ML VIAL IV PRN (13:00)
[2022-02-24] MEDS: ACETAMINOPHEN 325 MG TABLET PO PRN (18:14)
--- NOTE | 2022-02-24 18:51 | NUR ---
RN CLOSING NOTES PATIENT IN BED, AWAKE, A/O X4, VERBALLY RESPONSIVE. NO SIGNS OF ACUTE DISTRESS NOTED. REMAINS ON ROOM AIR, NO SOB NOTED, BREATHING EVEN AND UNLABORED. NO C/O PAIN AT THIS TIME. IV ACCESS ON RIGHT UPPER ARM MIDLINE #18G, INTACT AND PATENT, WITH NS @75 ML/HR INFUSING WELL. SAFETY MEASURE IN PLACE. BED IN LOWEST AND LOCKED POSITION, SIDE RAILS UP X2, CALL LIGHT PLACED WITHIN EASY REACH. WILL ENDORSE TO NEXT SHIFT FOR CONTINUITY OF CARE.
--- NOTE | 2022-02-24 19:30 | NUR ---
RN OPENING NOTE PATIENT IN BED, AWAKE. PATIENT IS A/O X 4, ABLE TO MAKE NEEDS KNOWN. PATIENT IS ON RA ONLY, TOLERATING WELL, NO SOB NOTED. PATIENT DOES NOT REPORT ANY PAIN AT THIS TI,E. TO BE NPO FOR MRCP IN AM. PATIENT HAS A DONATO MIDLINE WITH NS AT 75 ML/HR ONGOING. SAFETY MEASURES IN PLACE: BED LOCKED AND IN LOWEST POSITION, CALL LIGHT WITHIN REACH, SIDE RAILS UP. WILL MONITOR PATIENT CLOSELY
[2022-02-24 20:00] VITALS: BP 147/75
[2022-02-24] MEDS: ONDANSETRON HCL/PF 4 MG/2 ML VIAL IVP PRN (20:39)
--- NOTE | 2022-02-24 20:40 | NUR ---
RN NOTE PATIENT VERBALIZES NAUSEA, PATIENT GIVEN ZOFRAN IVP, WILL REASSESS MED EFFECTIVENESS AT A LATER TIME
[2022-02-24] MEDS: FAMOTIDINE (20 MG) 20 MG TABLET PO SCH (21:50)
[2022-02-24] MEDS: LamoTRIgine 100 MG TABLET PO SCH (21:50)
[2022-02-24] MEDS: ATORVASTATIN 10 MG TABLET PO SCH (21:50)
[2022-02-24] MEDS: ENOXAPARIN SODIUM 30 MG/0.3 ML DISP.SYRIN SQ SCH (21:51)
--- NOTE | 2022-02-24 21:51 | NUR ---
RN NOTE PATIENT GIVEN BENADRYL PATIENT'S RASHES ITCHING. WILL MONITOR PATIENT'S RESPONSE TO MEDICATION
[2022-02-24] MEDS: IV NS 0.9% 1,000 ML IV PRN (21:52)
[2022-02-25 04:00] VITALS: BP 145/55
[2022-02-25] MEDS: METRONIDAZOLE 500MG/ NS 100ML 500 MG in PREMIX 1 EA IV SCH ×2 (04:42→13:23)
--- NOTE | 2022-02-25 06:51 | NUR ---
RN CLOSING NOTE PATIENT IN BED, EYES CLOSED. EASILY AWAKENED. PATIENT IS A/O X 4, ABLE TO MAKE NEEDS KNOWN. PATIENT IS ON RA ONLY, TOLERATING WELL, NO SOB NOTED. PATIENT DID NOT REPORT ANY PAIN AND REMAINED AFEBRILE DURING THE SHIFT. NPO STATUS MAINTAINED FOR MRCP. PATIENT HAS A DONATO MIDLINE WITH NS AT 75 ML/HR ONGOING. SAFETY MEASURES IN PLACE: BED LOCKED AND IN LOWEST POSITION, CALL LIGHT WITHIN REACH, SIDE RAILS UP. ALL NEEDS MET AND ATTENDED. ALL ORDERS CARRIED OUT. WILL ENDORSE TO DAY SHIFT NURSE FOR RANJANA.
[2022-02-25 07:09] LABS: BASOPHILS % (AUTO) 0.4 % (0.0-2.0); EOSINOPHILS % (AUTO) 9.7 % (0.0-6.0); HEMATOCRIT 31 % (33-45); HEMOGLOBIN 10.6 g/dL (11.5-14.8); LYMPHOCYTES # (AUTO) 0.4 K/uL (0.8-4.8); LYMPHOCYTES % (AUTO) 11.1 % (20.0-44.0); MEAN CORPUSCULAR HGB CONC 34 g/dl (31.0-36.0); MEAN CORPUSCULAR VOLUME 85 fL (82-100); MONOCYTES # (AUTO) 0.4 K/uL (0.1-1.30); MONOCYTES % (AUTO) 11.5 % (2.0-12.0); NEUTROPHILS # (AUTO) 2.4 K/uL (1.8-8.9); NEUTROPHILS % (AUTO) 67.3 % (43.0-81.0); PLATELET COUNT (AUTO) 154 K/uL (150-450); RED BLOOD CELL COUNT(AUTO) 3.68 MIL/uL (4.0-5.2); WHITE BLOOD COUNT (AUTO) 3.6 K/uL (4.3-11.0)
--- NOTE | 2022-02-25 07:25 | NUR ---
RN OPENING NOTES RECEIVED PATIENT IN BED, EYES CLOSED. EASILY WAKEN. PATIENT IS A/O X 4, ABLE TO MAKE NEEDS KNOWN. PATIENT IS ON RA, TOLERATING WELL WITH NO SOB NOTED. NO PAIN VERBALIZED AT THIS TIME. NPO STATUS FOR MRCP. PATIENT HAS A DONATO MIDLINE WITH NS AT 75 ML/HR ONGOING. SAFETY MEASURES IN PLACE: BED LOCKED AND IN LOWEST POSITION, CALL LIGHT WITHIN REACH, SIDE RAILS UP. WILL CONTINUE TO MONITOR PATIENT.
[2022-02-25 07:28] LABS: ALANINE AMINOTRANSFERASE 155 U/L (12-78); ALBUMIN 2.4 g/dL (3.4-5.0); ALKALINE PHOSPHATASE 450 U/L (46-116); ASPARTATE AMINOTRANSFERASE 98 U/L (15-37); BILIRUBIN,DIRECT 3.2 mg/dL (0.0-0.2); BILIRUBIN,TOTAL 3.8 mg/dL (0.2-1.0); CALCIUM, SERUM 8.1 mg/dL (8.5-10.1); CARBON DIOXIDE 26 mmol/L (21-32); CHLORIDE 108 mmol/L (98-107); CREATININE 1.1 mg/dL (0.6-1.3); GLUCOSE 91 mg/dL (74-106); POTASSIUM 3.7 mmol/L (3.5-5.1); SODIUM SERUM 141 mmol/L (136-145); TOTAL PROTEIN, SERUM 5.3 g/dL (6.4-8.2); UREA NITROGEN, BLOOD 8 mg/dL (7-18)
[2022-02-25] MEDS: LEVOTHYROXINE SODIUM 88 MCG TABLET PO SCH (07:30)
[2022-02-25] MEDS: diphenhydrAMINE HCL 50 MG/ML VIAL IV PRN (08:22)
--- NOTE | 2022-02-25 08:25 | NUR ---
RN NOTES PATIENT REQUESTED ATIVAN AND BENADRYL PRE MRCP FOR CLAUSTROPHOBIA.
--- NOTE | 2022-02-25 08:30 | NUR ---
RN NOTES PATIENT PICKED UP BY 2 TECHS FOR MRCP PROCEDURE.
[2022-02-25 09:48] VITALS: BP 151/67
[2022-02-25] MEDS: CLOPIDOGREL BISULFATE 75 MG TABLET PO SCH (09:48)
[2022-02-25] MEDS: LISINOPRIL (10MG) 10 MG TABLET PO SCH (09:48)
[2022-02-25] MEDS: CYANOCOBALAMIN 500 MCG TABLET PO SCH (09:50)
[2022-02-25] MEDS: CHOLECALCIFEROL (VITAMIN D 3) 400 UNIT TABLET PO SCH (09:50)
[2022-02-25] MEDS: LEVETIRACETAM (250 MG) 250 MG TABLET PO SCH (09:50)
[2022-02-25] MEDS: NYSTATIN CREAM 15 GM TUBE TP SCH (09:51)
[2022-02-25] MEDS: LEVOFLOXACIN 500 MG /D5W 100ML 500 MG in PREMIX 1 EA IV SCH (10:44)
--- NOTE | 2022-02-25 13:12 | NUR ---
followup mrcp result per radiology still pending.
--- NOTE | 2022-02-25 14:44 | NUR ---
MRCP RESULT RELAYED TO DR. BRADY.
[2022-02-25] MEDS ORDERED: NYST15CR TP (14:56)
[2022-02-25] MEDS ORDERED: LEVO500T90 PO (14:56)
[2022-02-25] MEDS ORDERED: METR500T PO (14:56)
--- NOTE | 2022-02-25 16:00 | NUR ---
HEAD OF MARKETING ADOMETRY NOTES PATIENT MEDICALLY STABLE FOR DISCHARGE. VSS. DISCHARGE INSTRUCTIONS PROVIDED FOR PATIENT AND DOCUMENTS SIGNED. EXIT CARE PACKET PROVIDED. PATIENT ABLE TO VERBALIZE UNDERSTANDING. IV ACCESS REMOVED. ID BAND REMOVED. ALL BELONGINGS ACCOUNTED FOR. PATIENT LEFT FACILITY IN PRIVATE CARE ACCOMPANIED BY SELF.
== END 2022-02-25 16:13 | disposition home health service (06) | DRG 689 ==
LOC: ER 20:49 → MED 02-19 01:26 → MEDSG1 02-19 08:44
PROVIDERS: ADMIT Nurse Practitioner Acute Care; ATTEND Internal Medicine
PROC: 05HB33Z Insertion of Infusion Device into Right Basilic Vein, Percutaneous Approach (ICD-10-PCS; principal; 2022-02-22)
DX: N39.0 Urinary tract infection, site not specified (principal); N17.0 Acute kidney failure with tubular necrosis; D68.59 Other primary thrombophilia; Z16.35 Resistance to multiple antimicrobial drugs; E87.2 Acidosis; N18.9 Chronic kidney disease, unspecified; I12.9 Hypertensive chronic kidney disease with stage 1 through stage 4 chronic kidney disease, or unspecified chronic kidney disease; Z20.822 Contact with and (suspected) exposure to COVID-19; Z86.73 Personal history of transient ischemic attack (TIA), and cerebral infarction without residual deficits; K21.9 Gastro-esophageal reflux disease without esophagitis; E78.00 Pure hypercholesterolemia, unspecified; E78.5 Hyperlipidemia, unspecified; Z90.49 Acquired absence of other specified parts of digestive tract; Z98.890 Other specified postprocedural states; Z88.2 Allergy status to sulfonamides; E66.01 Morbid (severe) obesity due to excess calories; Z68.30 Body mass index [BMI] 30.0-30.9, adult; Z79.02 Long term (current) use of antithrombotics/antiplatelets; Z79.899 Other long term (current) drug therapy; L30.4 Erythema intertrigo; R21 Rash and other nonspecific skin eruption; K83.8 Other specified diseases of biliary tract; Z87.440 Personal history of urinary (tract) infections; R74.01 Elevation of levels of liver transaminase levels; B35.6 Tinea cruris; E03.9 Hypothyroidism, unspecified; G40.909 Epilepsy, unspecified, not intractable, without status epilepticus
CPT/HCPCS: 36410; 36415; 74181-TC; 76700-TC; 76770-TC; 80048-TC; 80053-TC; 80061-TC; 80076-TC; 83605-TC; 83735-TC; 84100-TC; 85025-TC; 87040-TC; 87081-TC; 87086-TC; 97116-TC; 97530-TC; A4216; A6403; C9803; G0378; J1200; J1650; J1956; J2060; J2405; J2543; J7030; J7060; U0003